=== PATIENT | male | born 1985 | race Caucasian/White ===

== ENCOUNTER 2016-06-10 23:46 | Inpatient (IN) | payer SELFPAY ==
[~2016-06-10] VITALS: Ht 182.9 cm; Wt 100.7 kg
[2016-06-11] VITALS (14 sets, daily range): BP systolic 112–146; BP diastolic 61–86
[2016-06-11] MEDS ORDERED: ONDANSETRON PF 4 MG/2 ML VIAL. IV PRN ×3 (01:30→14:15)
[2016-06-11] MEDS ORDERED: MORPHINE SULFATE 4 MG/ML DISP.SYRIN. IV PRN (01:30)
[2016-06-11] MEDS ORDERED: NICOTINE 14MG PATCH. TD PRN (01:30)
[2016-06-11] MEDS: IV NORMAL SALINE 1000ML BAG 1,000 ML IV SCH ×2 (02:11→10:40)
[2016-06-11 05:38] LABS: BASO % 0 % (0-3); EOS % 2 % (0-3); HEMOGLOBIN 14.1 g/dL (13.0-17.5); LYMPH # 2.7 x10^3/uL (1.0-4.8); LYMPH % 28 % (24-48); MEAN CORPUSCULAR HEMOGLOBIN 29 pg (25-35); MEAN CORPUSCULAR HGB CONC 34 g/dL (31-37); MEAN CORPUSCULAR VOLUME 86 fL (79-100); MONO % 10 % (0-9); NEUT % 60 % (31-73); PLATELET COUNT 191 x10^3/uL (140-400); RED BLOOD COUNT 4.91 x10^6/uL (4.30-5.70); RED CELL DISTRIBUTION WIDTH 13.9 % (11.5-14.5); WHITE BLOOD COUNT 9.8 x10^3/uL (4.0-11.0)
[2016-06-11 05:58] LABS: ALBUMIN 3.3 g/dL (3.4-5.0); CALCIUM 8.4 mg/dL (8.5-10.1); DIRECT BILIRUBIN 0.2 mg/dL (0.0-0.2); GFR 88.3; POTASSIUM 3.5 mmol/L (3.5-5.1); TOTAL BILIRUBIN 0.7 mg/dL (0.2-1.0); TOTAL PROTEIN 6.4 g/dL (6.4-8.2)
[2016-06-11] MEDS ORDERED: LIDOCAINE 1% 1 ML SYRINGE. ID PRN (09:15)
[2016-06-11] MEDS ORDERED: IV RINGERS,LACTATED 1000ML 1,000 ML IV SCH (09:15)
[2016-06-11] MEDS ORDERED: HYDROMORPHONE 2 MG/ML VIAL. IV PRN (09:15)
[2016-06-11] MEDS ORDERED: PROCHLORPERAZINE 10 MG/2 ML VIAL. IV PRN (09:15)
[2016-06-11] MEDS ORDERED: FENTANYL PF 100 MCG/2 ML VIAL. IV PRN (09:15)
[2016-06-11] MEDS ORDERED: MORPHINE SULFATE 2 MG/ML DISP.SYRIN. IV PRN (09:15)
[2016-06-11] MEDS ORDERED: HEPARIN 1,000 UNIT in IV NORMAL SALINE 1,000 ML for SURG PERIOP IRR ONE (10:07)
--- NOTE | 2016-06-11 10:55 | PDOC1 ---
History and Physical Past Surgical History Past Surgical History: No pertinent history Family History Family History: Other (NO HTN) Social History Smoke: No ALCOHOL: none Current Medications Current Medications Current Medications Medications (Trade) Dose Ordered Sig/Melody Start Time Stop Time Status Last Admin Dose Admin Fentanyl Citrate (Fentanyl 2ml Vial) 50 mcg PRN Q5MIN PRN 06/11/16 09:15 06/12/16 09:14 Heparin Sodium (Porcine)/Sodium Chloride (Iv Sodium Chloride 0.9% 1000ml Bag) 1,001 ml @ 1,001 mls/hr 1X PERIOP ONCE 06/11/16 10:07 06/11/16 11:06 Hydromorphone HCl (Dilaudid) 0.5 mg PRN Q10MIN PRN 06/11/16 09:15 06/12/16 09:14 Lactated Ringer's (Iv Lactated Ringers) 1,000 ml @ 0 mls/hr Q0M 06/11/16 09:15 06/11/16 21:14 Lidocaine HCl 2 ml 1X PRN PRN 06/11/16 09:15 06/12/16 09:14 Morphine Sulfate 1 mg 1 mg PRN Q10MIN PRN 06/11/16 09:15 06/12/16 09:14 Nicotine 1 patch 1 patch PRN DAILY PRN 06/11/16 01:30 Ondansetron HCl (Zofran) 4 mg PRN Q6HRS PRN 06/11/16 09:15 06/12/16 09:14 Prochlorperazine Edisylate 5 mg 5 mg PACU PRN PRN 06/11/16 09:15 06/12/16 09:14 Sodium Chloride (Iv Sodium Chloride 0.9% 1000ml Bag) 1,000 ml @ 100 mls/hr Q10H 06/11/16 01:30 06/11/16 10:40 100 MLS/HR Allergies Allergies Allergies Coded Allergies Type Severity Reaction Last Updated Verified No Known Drug Allergies 06/11/16 No ROS Review of System CONSTITUTIONAL: No fever or chills EYES: No recent changes SKIN: No rash or itching CARDIOVASCULAR: No chest pain, syncope, palpitations, or edema RESPIRATORY: No SOB or cough GASTROINTESTINAL: nausea, vomiting or abdominal pain NEUROLOGICAL: No headaches or weakness ENDOCRINE: No cold or heat intolerance GENITOURINARY: No urgency or frequency of urination MUSCULOSKELETAL: No back pain or joint pain LYMPHATICS: No enlarged lymph nodes PSYCHIATRIC: No anxiety or depression Physical Exam Physical Exam GEN.: No apparent distress. Alert and oriented. HEENT: Head is normocephalic, atraumatic NECK: Supple. NO JVD LUNGS: Clear to auscultation. normal airflow HEART: RRR, S1, S2 present. Peripheral pulses intact ABDOMEN: Soft, TANNER tender. Positive bowel sounds. EXTREMITIES: Without any cyanosis. NEUROLOGIC: Normal speech, normal tone PSYCHIATRIC: Normal affect, normal mood. SKIN: No ulcerations Vitals Vitals Vital Signs Date Time Temp Pulse Resp B/P Pulse Ox O2 Delivery O2 Flow Rate FiO2 06/11/16 10:48 96.9 75 18 132/85 97 Room Air 96.9 Labs Labs Laboratory Tests Test 06/11/16 04:45 White Blood Count 9.8x10^3/uL (4.0-11.0) Red Blood Count 4.91x10^6/uL (4.30-5.70) Hemoglobin 14.1g/dL (13.0-17.5) Hematocrit 42.0% (39.0-53.0) Mean Corpuscular Volume 86fL (79-100) Mean Corpuscular Hemoglobin 29pg (25-35) Mean Corpuscular Hemoglobin Concent 34g/dL (31-37) Red Cell Distribution Width 13.9% (11.5-14.5) Platelet Count 191x10^3/uL (140-400) Neutrophils (%) (Auto) 60% (31-73) Lymphocytes (%) (Auto) 28% (24-48) Monocytes (%) (Auto) 10% (0-9) Eosinophils (%) (Auto) 2% (0-3) Basophils (%) (Auto) 0% (0-3) Neutrophils # (Auto) 5.9x10^3uL (1.8-7.7) Lymphocytes # (Auto) 2.7x10^3/uL (1.0-4.8) Monocytes # (Auto) 1.0x10^3/uL (0.0-1.1) Eosinophils # (Auto) 0.2x10^3/uL (0.0-0.7) Basophils # (Auto) 0.0x10^3/uL (0.0-0.2) Sodium Level 143mmol/L (136-145) Potassium Level 3.5mmol/L (3.5-5.1) Chloride Level 107mmol/L (98-107) Carbon Dioxide Level 29mmol/L (21-32) Anion Gap 7 (6-14) Blood Urea Nitrogen 9mg/dL (8-26) Creatinine 1.0mg/dL (0.7-1.3) Estimated GFR (Cockcroft-Gault) 88.3 Glucose Level 93mg/dL (70-99) Calcium Level 8.4mg/dL (8.5-10.1) Total Bilirubin 0.7mg/dL (0.2-1.0) Direct Bilirubin 0.2mg/dL (0.0-0.2) Aspartate Amino Transf (AST/SGOT) 127U/L (15-37) Alanine Aminotransferase (ALT/SGPT) 165U/L (16-63) Alkaline Phosphatase 135U/L (46-116) Total Protein 6.4g/dL (6.4-8.2) Albumin 3.3g/dL (3.4-5.0) Laboratory Tests Test 06/11/16 04:45 White Blood Count 9.8x10^3/uL (4.0-11.0) Red Blood Count 4.91x10^6/uL (4.30-5.70) Hemoglobin 14.1g/dL (13.0-17.5) Hematocrit 42.0% (39.0-53.0) Mean Corpuscular Volume 86fL (79-100) Mean Corpuscular Hemoglobin 29pg (25-35) Mean Corpuscular Hemoglobin Concent 34g/dL (31-37) Red Cell Distribution Width 13.9% (11.5-14.5) Platelet Count 191x10^3/uL (140-400) Neutrophils (%) (Auto) 60% (31-73) Lymphocytes (%) (Auto) 28% (24-48) Monocytes (%) (Auto) 10% (0-9) Eosinophils (%) (Auto) 2% (0-3) Basophils (%) (Auto) 0% (0-3) Neutrophils # (Auto) 5.9x10^3uL (1.8-7.7) Lymphocytes # (Auto) 2.7x10^3/uL (1.0-4.8) Monocytes # (Auto) 1.0x10^3/uL (0.0-1.1) Eosinophils # (Auto) 0.2x10^3/uL (0.0-0.7) Basophils # (Auto) 0.0x10^3/uL (0.0-0.2) Sodium Level 143mmol/L (136-145) Potassium Level 3.5mmol/L (3.5-5.1) Chloride Level 107mmol/L (98-107) Carbon Dioxide Level 29mmol/L (21-32) Anion Gap 7 (6-14) Blood Urea Nitrogen 9mg/dL (8-26) Creatinine 1.0mg/dL (0.7-1.3) Estimated GFR (Cockcroft-Gault) 88.3 Glucose Level 93mg/dL (70-99) Calcium Level 8.4mg/dL (8.5-10.1) Total Bilirubin 0.7mg/dL (0.2-1.0) Direct Bilirubin 0.2mg/dL (0.0-0.2) Aspartate Amino Transf (AST/SGOT) 127U/L (15-37) Alanine Aminotransferase (ALT/SGPT) 165U/L (16-63) Alkaline Phosphatase 135U/L (46-116) Total Protein 6.4g/dL (6.4-8.2) Albumin 3.3g/dL (3.4-5.0) VTE Prophylaxis Ordered VTE Prophylaxis Devices: Yes VTE Pharmacological Prophylaxi: Yes BENTON ANNE MD Jun 11, 2016 10:55
[2016-06-11] MEDS ORDERED: CEFAZOLIN 2GM PREMIX 50 ML IV SCH (11:15)
--- NOTE | 2016-06-11 11:21 | PDOC ---
SURGICAL PROGRESS NOTE Subjective 31 yo M with calculous cholecystitis TO OR for lap annie with grams R/B/a d/w pt Thanks for consult! [id number] Vital Signs Vital Signs Date Time Temp Pulse Resp B/P Pulse Ox O2 Delivery O2 Flow Rate FiO2 06/11/16 10:48 96.9 75 18 132/85 97 Room Air 96.9 I&O Intake and Output 06/11/16 07:00 Intake Total 0 ml Balance 0 ml Intake Oral 0 ml Labs Laboratory Tests Test 06/11/16 04:45 White Blood Count 9.8x10^3/uL (4.0-11.0) Red Blood Count 4.91x10^6/uL (4.30-5.70) Hemoglobin 14.1g/dL (13.0-17.5) Hematocrit 42.0% (39.0-53.0) Mean Corpuscular Volume 86fL (79-100) Mean Corpuscular Hemoglobin 29pg (25-35) Mean Corpuscular Hemoglobin Concent 34g/dL (31-37) Red Cell Distribution Width 13.9% (11.5-14.5) Platelet Count 191x10^3/uL (140-400) Neutrophils (%) (Auto) 60% (31-73) Lymphocytes (%) (Auto) 28% (24-48) Monocytes (%) (Auto) 10% (0-9) Eosinophils (%) (Auto) 2% (0-3) Basophils (%) (Auto) 0% (0-3) Neutrophils # (Auto) 5.9x10^3uL (1.8-7.7) Lymphocytes # (Auto) 2.7x10^3/uL (1.0-4.8) Monocytes # (Auto) 1.0x10^3/uL (0.0-1.1) Eosinophils # (Auto) 0.2x10^3/uL (0.0-0.7) Basophils # (Auto) 0.0x10^3/uL (0.0-0.2) Sodium Level 143mmol/L (136-145) Potassium Level 3.5mmol/L (3.5-5.1) Chloride Level 107mmol/L (98-107) Carbon Dioxide Level 29mmol/L (21-32) Anion Gap 7 (6-14) Blood Urea Nitrogen 9mg/dL (8-26) Creatinine 1.0mg/dL (0.7-1.3) Estimated GFR (Cockcroft-Gault) 88.3 Glucose Level 93mg/dL (70-99) Calcium Level 8.4mg/dL (8.5-10.1) Total Bilirubin 0.7mg/dL (0.2-1.0) Direct Bilirubin 0.2mg/dL (0.0-0.2) Aspartate Amino Transf (AST/SGOT) 127U/L (15-37) Alanine Aminotransferase (ALT/SGPT) 165U/L (16-63) Alkaline Phosphatase 135U/L (46-116) Total Protein 6.4g/dL (6.4-8.2) Albumin 3.3g/dL (3.4-5.0) Laboratory Tests Test 06/11/16 04:45 White Blood Count 9.8x10^3/uL (4.0-11.0) Red Blood Count 4.91x10^6/uL (4.30-5.70) Hemoglobin 14.1g/dL (13.0-17.5) Hematocrit 42.0% (39.0-53.0) Mean Corpuscular Volume 86fL (79-100) Mean Corpuscular Hemoglobin 29pg (25-35) Mean Corpuscular Hemoglobin Concent 34g/dL (31-37) Red Cell Distribution Width 13.9% (11.5-14.5) Platelet Count 191x10^3/uL (140-400) Neutrophils (%) (Auto) 60% (31-73) Lymphocytes (%) (Auto) 28% (24-48) Monocytes (%) (Auto) 10% (0-9) Eosinophils (%) (Auto) 2% (0-3) Basophils (%) (Auto) 0% (0-3) Neutrophils # (Auto) 5.9x10^3uL (1.8-7.7) Lymphocytes # (Auto) 2.7x10^3/uL (1.0-4.8) Monocytes # (Auto) 1.0x10^3/uL (0.0-1.1) Eosinophils # (Auto) 0.2x10^3/uL (0.0-0.7) Basophils # (Auto) 0.0x10^3/uL (0.0-0.2) Sodium Level 143mmol/L (136-145) Potassium Level 3.5mmol/L (3.5-5.1) Chloride Level 107mmol/L (98-107) Carbon Dioxide Level 29mmol/L (21-32) Anion Gap 7 (6-14) Blood Urea Nitrogen 9mg/dL (8-26) Creatinine 1.0mg/dL (0.7-1.3) Estimated GFR (Cockcroft-Gault) 88.3 Glucose Level 93mg/dL (70-99) Calcium Level 8.4mg/dL (8.5-10.1) Total Bilirubin 0.7mg/dL (0.2-1.0) Direct Bilirubin 0.2mg/dL (0.0-0.2) Aspartate Amino Transf (AST/SGOT) 127U/L (15-37) Alanine Aminotransferase (ALT/SGPT) 165U/L (16-63) Alkaline Phosphatase 135U/L (46-116) Total Protein 6.4g/dL (6.4-8.2) Albumin 3.3g/dL (3.4-5.0) TIEN GEORGES MD Jun 11, 2016 11:21
[2016-06-11] MEDS ORDERED: SEVOFLURANE 31 TO 60 MINUTES. IH ONE (12:13)
[2016-06-11] MEDS ORDERED: PROPOFOL 20 ML IV ONE (12:13)
[2016-06-11] MEDS ORDERED: DEXAMETHASONE SOD PHOS 20 MG/5 ML VIAL. ONE (12:14)
[2016-06-11] MEDS ORDERED: MIDAZOLAM HCL 2 MG/2 ML VIAL. ONE (12:14)
[2016-06-11] MEDS ORDERED: LIDOCAINE 2% 100 MG/5 ML DISP.SYRIN. ONE (12:14)
[2016-06-11] MEDS ORDERED: FAMOTIDINE 20 MG/2 ML VIAL ONE (12:14)
[2016-06-11] MEDS ORDERED: ONDANSETRON PF 4 MG/2 ML VIAL. ONE (12:14)
[2016-06-11] MEDS ORDERED: FENTANYL PF 250 MCG/5 ML VIAL. ONE (12:15)
[2016-06-11] MEDS ORDERED: ROCURONIUM 50 MG/5 ML VIAL. ONE (12:15)
[2016-06-11] MEDS ORDERED: NEOSTIGMINE METHYLSULFATE 5 MG/5 ML SYRINGE. ONE ×2 (12:18→13:41)
[2016-06-11] MEDS ORDERED: GLYCOPYRROLATE 1 MG/5 ML VIAL. ONE ×2 (12:18→13:41)
[2016-06-11] MEDS ORDERED: IOHEXOL 300 MG/ML 50 ML VIAL. ONE (13:00)
[2016-06-11] MEDS ORDERED: BISACODYL 10 MG SUPP.RECT ONE (13:00)
[2016-06-11] MEDS ORDERED: SURGICEL HEMOSTAT 2X3 EACH. ONE (13:00)
[2016-06-11] MEDS ORDERED: BUPIVAC MPF-EPI 0.5%-1:200000 30 ML VIAL. ONE (13:00)
--- NOTE | 2016-06-11 13:52 | RAD ---
C-arm fluoroscopy with fluoroscopic spot views Clinical indications: Laparoscopic cholecystectomy. Intraoperative cholangiogram Total fluoroscopic time: 0.6 minutes. Total fluoroscopic spot views: 2 IMPRESSION: These fluoroscopic spot views demonstrate opacification of the extrahepatic biliary tree with free flow of contrast material from the common bile duct into the duodenum. No stricture or common bile duct stone is evident.
[2016-06-11] MEDS: IV RINGERS,LACTATED 1000ML 1,000 ML IV SCH (14:12)
[2016-06-11] MEDS ORDERED: 0.9 % SODIUM CHLORIDE 10 ML DISP.SYRIN. IV PRN (14:15)
[2016-06-11] MEDS ORDERED: DEXTROSE 50% 25 GM / 50ML DISP.SYRIN. IV PRN (14:15)
[2016-06-11] MEDS ORDERED: HYDROCODONE/APAP 5/325MG TABLET. PO PRN (14:15)
[2016-06-11] MEDS ORDERED: KETOROLAC TROMETHAMINE 30 MG/ML SYRINGE. IV PRN (14:15)
--- NOTE | 2016-06-11 14:19 | PDOC ---
BRIEF OPERATIVE NOTE Pre-Op Diagnosis Cholecystitis Post-Op Diagnosis same Procedure Performed Lap annie with macrina Surgeon Ephraim Anesthesia Type: General, Local Blood Loss 10 IV Fluid 1000 Specimens Obtained GB Findings wnl IOC Complications none Additional Remarks [id number] TIEN GEORGES MD Jun 11, 2016 14:19
[2016-06-11] MEDS: FENTANYL PF 100 MCG/2 ML VIAL. IV PRN ×2 (14:38→14:51)
[2016-06-11] MEDS ORDERED: ALBUTEROL SULFATE 2.5 MG/3 ML NEBU. ONE (14:47)
[2016-06-11] MEDS ORDERED: ALBUTEROL SULFATE 2.5 MG/3 ML NEBU. NEB ONE (15:00)
[2016-06-11] MEDS: MORPHINE SULFATE 2 MG/ML DISP.SYRIN. IV PRN ×2 (16:28→19:18)
--- NOTE | 2016-06-11 20:40 | OP ---
DATE OF SURGERY: 06/11/2016 REFERRING PHYSICIANS: Dr. Gardner, Dr. Troy Graves. PREOPERATIVE DIAGNOSIS: Calculous cholecystitis. POSTOPERATIVE DIAGNOSIS: Calculous cholecystitis. PROCEDURE: Laparoscopic cholecystectomy with intraoperative cholangiogram. SURGEON: Mihai Ye MD ESTIMATED BLOOD LOSS: 10 mL. FLUIDS: 1000 mL. COMPLICATIONS: None. FINDINGS: Distended, indurated gallbladder, normal-appearing intraoperative cholangiogram. INDICATIONS: A 31-year-old male presents with complaints of several-month history of right upper quadrant abdominal pain. Imaging is concerning for calculous cholecystitis. Subsequently, it was felt that the patient would best be served by laparoscopic cholecystectomy with intraoperative cholangiogram. The patient was informed of the risks, benefits, and alternatives to the procedure; risks including but not limited to bleeding, infection, damage to surrounding structures, risk of anesthesia, risk of an open procedure. The patient appears to understand and is insightful. Questions were answered and he agrees to proceed. DESCRIPTION OF PROCEDURE: After obtaining informed consent, the patient was taken to the operating room, induced under general endotracheal anesthetic. The patient was prepped and draped in the usual fashion in the anterior abdominal wall. A 0.5% Marcaine with epinephrine was injected in the supraumbilical area. An incision was made using 15 blade scalpel. A 5-mm nonbladed trocar was introduced in the abdominal cavity under direct vision of the laparoscope. Pneumoperitoneum was established. Additional 12 ports were placed in the epigastrium, another 5-mm port was placed in the right upper quadrant, all under direct vision of the laparoscope. The abdominal cavity was explored. The patient is somewhat obese, making the procedure somewhat difficult. Visualized portion of the viscera was normal in appearance. There was no evidence of trocar injury. The liver was mildly fatty in nature. The gallbladder was noted to be indurated and distended. The gallbladder was grasped. The triangle of Calot was exposed. The peritoneum overlying the cystic duct was taken down using blunt dissection. Circumferential dissection was performed of the cystic duct at the [id number] junction. Critical view was obtained which demonstrated that the cystic duct and cystic artery as the only structures going to the gallbladder. Clips were placed on the cystic artery and clip was placed on the [id number] junction. Incision was made in the cystic duct using EndoShears. Cholangiogram catheter was introduced and cholangiogram was obtained. Cholangiogram demonstrated normal-appearing hepatic ducts, normal-appearing common bile duct, free extravasation in the duodenum. Cholangiogram catheter was removed. Multiple clips were placed on the cystic duct stump including Hem-o-ruchi and the cystic duct was divided. Cystic artery was divided between the previously placed clips. The gallbladder was taken off the gallbladder fossa sharply using electrocautery. Gallbladder was placed in an EndoCatch bag, brought out through the epigastric port, passed off the field, and sent to Pathology for evaluation. This did require dilatation in the epigastric port secondary to the large gallbladder. The abdominal cavity was copiously irrigated with normal saline solution. There was no evidence of bleeding or bile leak at the time of closure. All ports were removed under direct vision of the laparoscope. There was no evidence port site bleeding. Fascial defect in the epigastrium was reapproximated using interrupted 0 Vicryl stitch using Endo Close. All skin incisions were reapproximated using multiple interrupted 4-0 Monocryl in subcuticular fashion. Sterile dressing was placed over all wounds. The patient tolerated the procedure well and was discharged to Recovery Room in stable condition. All counts were correct. There were no immediate complications. MIHAI YE MD DR: YANIRA/nilda JOB#: [id number] / [id number] Troy Johnson SRINIVASA MD [facility]
[2016-06-11] MEDS: DOCUSATE SODIUM 100 MG CAPSULE PO SCH (21:16)
--- NOTE | 2016-06-11 23:11 | HP ---
ADMIT DATE: 06/11/2016 CHIEF COMPLAINT: Abdominal pain. HISTORY OF PRESENT ILLNESS: A 31-year-old male patient with no significant prior medical conditions, presented to [place] ER with complaints of abdominal pain. Abdominal pain located in the right upper quadrant, intractable in nature, also associated with nausea and vomiting. The patient had similar complaints in the past; however, symptoms resolved by itself, but yesterday symptoms are persistent in nature which made him to come to the ER. Initial imaging studies suggestive of acute cholecystitis and he has been transferred to [facility] for surgical evaluation. He has been admitted for cholecystectomy. PAST MEDICAL HISTORY: Please see my electronic H and P. REVIEW OF SYSTEMS: Please see my electronic H and P. ALLERGIES: Please see my electronic H and P. LABORATORY FINDINGS: Chemistry: Sodium 143, potassium is 3.5, chloride is 107, carbon dioxide 29, anion gap 7, BUN is 9, creatinine 1 and glucose ____. AST 127, ALT 165, alkaline phosphatase is 135. WBC is 9.8, hemoglobin is 14.1, MCV is 86, platelets 191. IMAGING STUDIES: As per the report from [place], suspect cholecystitis. ASSESSMENT: 1. Gallstone cholecystitis. 2. Intractable abdominal pain due to above. PLAN: 1. The patient is surgically prepared for cholecystectomy this afternoon. 2. Pain control with IV morphine. 3. N.p.o. IV hydration at 75 mL per hour. 4. P.r.n. Zofran for nausea. 5. General Surgery has been following. Dr. Ye has been consulted. 6. DVT prophylaxis. BENTON ANNE MD DR: ERIKA/nilda JOB#: [id number] / [id number] WESLYD
[2016-06-12] MEDS: IV RINGERS,LACTATED 1000ML 1,000 ML IV SCH (00:12)
[2016-06-12 03:00] VITALS: BP 118/49
[2016-06-12 07:00] VITALS: BP 115/58
[2016-06-12] MEDS: DOCUSATE SODIUM 100 MG CAPSULE PO SCH (08:26)
--- NOTE | 2016-06-12 09:22 | PDOC ---
SURGICAL PROGRESS NOTE Subjective tolerating diet ambulating urinating pain managed Vital Signs Vital Signs Date Time Temp Pulse Resp B/P Pulse Ox O2 Delivery O2 Flow Rate FiO2 06/12/16 07:00 97.6 82 18 115/58 94 Nasal Cannula 3.0 97.6 I&O Intake and Output 06/12/16 07:00 Intake Total 3540 ml Balance 3540 ml Intake Oral 1840 ml IV Total 1350 ml Other 350 ml # Voids 5 General: Alert, Oriented X3, Cooperative, No acute distress Abdomen: Soft, Other (lap sites c/d/i, no erythema ) Labs Laboratory Tests Test 06/11/16 04:45 White Blood Count 9.8x10^3/uL (4.0-11.0) Red Blood Count 4.91x10^6/uL (4.30-5.70) Hemoglobin 14.1g/dL (13.0-17.5) Hematocrit 42.0% (39.0-53.0) Mean Corpuscular Volume 86fL (79-100) Mean Corpuscular Hemoglobin 29pg (25-35) Mean Corpuscular Hemoglobin Concent 34g/dL (31-37) Red Cell Distribution Width 13.9% (11.5-14.5) Platelet Count 191x10^3/uL (140-400) Neutrophils (%) (Auto) 60% (31-73) Lymphocytes (%) (Auto) 28% (24-48) Monocytes (%) (Auto) 10% (0-9) Eosinophils (%) (Auto) 2% (0-3) Basophils (%) (Auto) 0% (0-3) Neutrophils # (Auto) 5.9x10^3uL (1.8-7.7) Lymphocytes # (Auto) 2.7x10^3/uL (1.0-4.8) Monocytes # (Auto) 1.0x10^3/uL (0.0-1.1) Eosinophils # (Auto) 0.2x10^3/uL (0.0-0.7) Basophils # (Auto) 0.0x10^3/uL (0.0-0.2) Sodium Level 143mmol/L (136-145) Potassium Level 3.5mmol/L (3.5-5.1) Chloride Level 107mmol/L (98-107) Carbon Dioxide Level 29mmol/L (21-32) Anion Gap 7 (6-14) Blood Urea Nitrogen 9mg/dL (8-26) Creatinine 1.0mg/dL (0.7-1.3) Estimated GFR (Cockcroft-Gault) 88.3 Glucose Level 93mg/dL (70-99) Calcium Level 8.4mg/dL (8.5-10.1) Total Bilirubin 0.7mg/dL (0.2-1.0) Direct Bilirubin 0.2mg/dL (0.0-0.2) Aspartate Amino Transf (AST/SGOT) 127U/L (15-37) Alanine Aminotransferase (ALT/SGPT) 165U/L (16-63) Alkaline Phosphatase 135U/L (46-116) Total Protein 6.4g/dL (6.4-8.2) Albumin 3.3g/dL (3.4-5.0) Problem List Problems Medical Problems: (1) Calculous cholecystitis Status: Acute Assessment/Plan s/p giovanna addison to pr home Problems: JIMY HERNANDEZ APRN Jun 12, 2016 09:22
[2016-06-12 10:43] VITALS: BP 117/55
[2016-06-12] MEDS ORDERED: HYDR-971 PO (11:59)
--- NOTE | 2016-06-12 14:56 | CONS ---
DATE OF CONSULTATION: 06/11/2016 REFERRING PHYSICIANS: Dr. Gardner, Dr. Troy Graves. CHIEF COMPLAINT: Right upper quadrant abdominal pain. DIAGNOSIS: Calculous cholecystitis. PLANNED PROCEDURE: Laparoscopic cholecystectomy with intraoperative cholangiogram. HISTORY OF PRESENT ILLNESS: This is a 31-year-old male who reports a 2-month history of epigastric right upper quadrant abdominal pain which is gradually worsening. He presented to the [facility] ER yesterday. Evaluation was concerning for calculous cholecystitis by ultrasound and subsequently transferred to [place] for definitive surgical care. He is seen in his hospital room. He reports feeling better at this time. ALLERGIES: HE HAS NO KNOWN DRUG ALLERGIES. MEDICATIONS: None. PAST MEDICAL HISTORY: None. PAST SURGICAL HISTORY: None. SOCIAL HISTORY: Positive for tobacco 1/2 pack per day. He is strongly encouraged on need for smoking cessation. Social alcohol. FAMILY HISTORY: Noncontributory. REVIEW OF SYSTEMS: All systems reviewed and negative except for HPI. PHYSICAL EXAMINATION: GENERAL: Well-developed, well-nourished male, in no obvious distress. VITAL SIGNS: He is afebrile, vital signs within normal limits. HEENT: Normocephalic, anicteric sclerae, oropharynx clear. NECK: Supple. CHEST: Bilateral chest clear to auscultation. ABDOMEN: Soft, nondistended, some tenderness to palpation in the right upper quadrant. EXTREMITIES: No clubbing, cyanosis or edema. LABORATORY DATA: Ultrasound at [facility] demonstrated cholelithiasis with some mild gallbladder wall thickening. Total bili is 0.2, however.. IMPRESSION AND RECOMMENDATIONS: A 31-year-old male with calculous cholecystitis. We will plan on laparoscopic cholecystectomy with intraoperative cholangiogram. The patient was informed of the risks, benefits, alternatives to procedure, risks including but not limited to bleeding, infection, damage to surrounding structures, risk of anesthesia, risk of an open procedure. The patient appears to understand and his insightful questions were answered and he agrees to proceed. Thank you for allowing participation in the care of this very pleasant patient. TIEN GEORGES MD DR: YANIRA/nilda JOB#: [id number] / [id number] TROY Kam MD, SRINIVASA MD MTDD
--- NOTE | 2016-06-12 16:11 | PATHOLOGY ---
PATHOLOGY REPORT * * * * * * * * FINAL DIAGNOSIS: Gallbladder, cholecystectomy: - Cholelithiasis. - Cholesterolosis. - Chronic and focal acute cholecystitis with focally increased eosinophils. COMMENT: There is no evidence of malignancy. (JPM:csd; d/t: 06/12/2016) REPORT ELECTRONICALLY SIGNED BY: Alex Leal M.D. DATE/TIME: 06/12/2016 16:11 * * * * * * * * GROSS PATHOLOGY: Received in formalin labeled "Dianna Arango, gallbladder sac with contents," is a 9.1 x 3.6 x 3.0 cm, previously punctured gallbladder with adipose covered serosal surfaces. Opening the gallbladder reveals a velvety, red-thompson mucosa with moderate, diffuse cholesterolosis and an average wall thickness of 0.1 cm. Calculi are present displaying a yellow-thompson and nodular appearance, and no masses are noted grossly. Claims Examiner sections from the body and fundus are submitted along with the proximal margin in cassette A1. (CAA; 06/11/2016) INITIAL CPT CODE(S): A; 21022 Professional services performed by [facility] [place] [address] Technical services performed by [facility] at [address] [place] [address], [facility] [address] [address]. SPECIMEN(S) RECEIVED: A.Gallbladder sac with contents CLINICAL HISTORY: Calculous cholecystitis PATIENT: DIANNA ARANGO /AGE: 105/21/1985 (Age: 31) PATIENT #: [id number] ALT CASE #: SPECIMEN COLLECTION DATE: 06/11/2016 SPECIMEN RECEIVED DATE: 06/11/2016 [facility] - [address] [place] [address] - PHONE: [phone] * * * END OF REPORT * * *
== END 2016-06-12 13:58 | disposition home or self-care (01) | DRG 419 ==
LOC: 4 NORTH 06-11 01:14
PROVIDERS: ADMIT Internal Medicine; ATTEND Internal Medicine
PROC: BF101ZZ Fluoroscopy of Bile Ducts using Low Osmolar Contrast (ICD-10-PCS; 2016-06-11)
PROC: 0FT44ZZ Resection of Gallbladder, Percutaneous Endoscopic Approach (ICD-10-PCS; principal; 2016-06-11 14:00)
DX: K80.00 Calculus of gallbladder with acute cholecystitis without obstruction (principal); E66.9 Obesity, unspecified; F17.200 Nicotine dependence, unspecified, uncomplicated; Z68.30 Body mass index [BMI] 30.0-30.9, adult
CPT/HCPCS: 36415; 74300; 80048; 80076; 85027; 88304; C1782; J0690; J1100; J1885; J2250; J2270; J2405; J2704; J2710; J3010; J3490; J7030; J7120; Q9967; S0028